=== PATIENT | female | born 1960 | race Native Hawaiian/Other Pacific Islander ===

== ENCOUNTER 2019-12-13 10:08 | Outpatient (CLI) | payer OTHER ==
[~2019-12-13 10:08] MED LIST: HYZAAR1 TA2 PO; LEVO0.0723 PO; TRIA75TA61 PO; VERA180T12 PO; VICTOZA18 MG/3 ML SC; VITAMIN D5000 UNIT PO; VITAMIN D50000 UNT PO
[2019-12-13 10:30] LABS: PLATELET COUNT 275 K/uL (152-353)
[2019-12-13 10:42] LABS: POTASSIUM 3.8 mmol/L (3.6-5.2)
== END 2019-12-14 00:37 | disposition home or self-care (01) ==
LOC: LABW 10:08
PROVIDERS: Internal Medicine
DX: E11.22 Type 2 diabetes mellitus with diabetic chronic kidney disease (principal); N18.30 Chronic kidney disease, stage 3 unspecified
CPT/HCPCS: 36415; 80053; 81000; 82306; 82330; 82570; 83036; 83735; 83970; 84100; 84155; 85027

== ENCOUNTER 2021-10-17 16:13 | Emergency (ER) | payer OTHER ==
[~2021-10-17] VITALS: Ht 170.2 cm; Wt 127.0 kg
[2021-10-17 16:23] VITALS: TEMP 97.6
[2021-10-17 16:51] LABS: PLATELET COUNT 251 K/uL (152-353)
[2021-10-17 16:55] LABS: POTASSIUM 3.5 mmol/L (3.6-5.2)
[2021-10-17 17:10] LABS: PARTIAL THROMBOPLASTIN TIME 25.8 SECONDS (24.5-33.6)
[2021-10-17 17:26] VITALS: BP 156/78
== END 2021-10-17 17:30 | disposition home or self-care (01) ==
LOC: ED 16:13
PROVIDERS: Hospitalist
DX: I16.0 Hypertensive urgency (principal); F43.8 Other reactions to severe stress
CPT/HCPCS: 36415; 80053; 82550; 83880; 84484; 85027; 85379; 85610; 85730; 93005; 99284